=== PATIENT | female | born 1955 | race Asian ===

== ENCOUNTER 2019-04-14 11:05 | Emergency (ER) | payer OTHER ==
[~2019-04-14] VITALS: Ht 154.9 cm; Wt 63.5 kg
[2019-04-14] MEDS ORDERED: ZOCOR20 MG (11:47)
[2019-04-14] MEDS ORDERED: MONTELUKAST SODI4 M1 (11:48)
[2019-04-14] MEDS ORDERED: SYNTHROID75 MCG (11:48)
[2019-04-14] MEDS ORDERED: DICLOFENAC SODI50 MG PO (15:43)
== END 2019-04-14 16:19 | disposition home or self-care (01) ==
LOC: ER 11:05
DX: S82.62XA Displaced fracture of lateral malleolus of left fibula, initial encounter for closed fracture (principal); X50.0XXA Overexertion from strenuous movement or load, initial encounter; Y93.89 Activity, other specified; Y92.89 Other specified places as the place of occurrence of the external cause; Y99.8 Other external cause status